=== PATIENT | male | born 1990 | race Caucasian/White ===

== ENCOUNTER 2017-10-16 23:35 | Emergency (ER) | payer SELFPAY ==
[~2017-10-16] VITALS: Ht 175.3 cm; Wt 103.4 kg
[2017-10-17] MEDS ORDERED: Bacitracin Oint UD TOPIC ONE ×2 (00:48→01:00)
[2017-10-17] MEDS ORDERED: CEPHALEXIN500 MG ORAL (00:49)
--- NOTE | 2017-10-17 00:49 | Emergency Room Report ---
History of Present Illness General Chief Complaint: Laceration Source: Patient Present Illness HPI Is a 27-year-old male with no cerumen past medical history. He presents with laceration to right leg. He was at a soccer game when his friend fell onto him and he fell. He sustained a laceration to his right leg. No other injury. Denies any other complaint. Tetanus up-to-date. Allergies: Coded Allergies: AMOXICILLIN (Verified Allergy, Unknown, 10/16/17) Patient History Past Medical History: see triage record, old chart reviewed Past Surgical History: other Pertinent Family History: none Social History: Reports: alcohol use Immunizations: UTD Reviewed Nursing Documentation: PMH: Agreed; PSxH: Agreed Nursing Documentation-PMH Past Medical History: No Stated History Review of Systems Eye: Denies: eye pain, blurred vision ENT: Denies: ear pain, nose congestion, throat swelling Respiratory: Denies: cough, shortness of breath Cardiovascular: Denies: chest pain, palpitations Gastrointestinal: Denies: abdominal pain, diarrhea, nausea, vomiting Musculoskeletal: Denies: back pain, joint pain Skin: Denies: rash Neurological: Denies: headache, numbness Endocrine: Denies: increased thirst, increased urine Hematologic/Lymphatic: Denies: easy bruising All Other Systems: negative except mentioned in HPI Physical Exam Vital Signs Date Time Temp Pulse Resp B/P (MAP) Pulse Ox O2 Delivery O2 Flow Rate FiO2 10/16/17 23:44 97.6 105 18 113/61 95 Room Air 97.5 vitals normal Sp02 EP Interpretation: reviewed, normal General Appearance: well appearing, no apparent distress, alert Head: normocephalic, atraumatic Eyes: bilateral eye PERRL, bilateral eye EOMI ENT: hearing grossly normal, normal pharynx Neck: full range of motion, supple, no meningismus Respiratory: chest non-tender, lungs clear, normal breath sounds Cardiovascular #1: regular rate, rhythm, no murmur Gastrointestinal: normal bowel sounds, non tender, no mass, no organomegaly, no bruit, non-distended Musculoskeletal: back normal, gait/station normal, normal range of motion, other - 5 cm laceration to the proximal right tibia area. No foreign body Psychiatric: mood/affect normal Skin: warm/dry Procedures Laceration/Wound Repair Laceration/Wound Repair : Consent: Verbal Wound Location: lower extremity Wound's Depth, Shape: linear, contused tissue Wound Length (cm): 5 Wound Explored: clean Irrigated w/ Saline (ccs): 1000 Betadine Prep?: Yes Anesthesia: 1% Lidocaine Volume Anesthetic (ccs): 5 Wound Repaired With: sutures Suture Size/Type: 3:0, proline Number of Sutures: 5 Sterile Dressing Applied?: Yes Patient Tolerated: Well Complications: None Medical Decision Making Diagnostic Impression: Primary Impression: Laceration of lower extremity Qualified Codes: S81.811A - Laceration without foreign body, right lower leg, initial encounter ER Course Patient with uncomplicated laceration to the lower extremity. Low risk for infection. No tendon laceration or foreign body. Last Vital Signs Date Time Temp Pulse Resp B/P (MAP) Pulse Ox O2 Delivery O2 Flow Rate FiO2 10/16/17 23:44 97.6 105 18 113/61 95 Room Air 97.5 Status: improved Disposition: HOME, SELF-CARE Condition: Stable Scripts Cephalexin* (KEFLEX*) 500 Mg Capsule 500 MG ORAL TID, #21 CAP Prov: LELO SANDERS M.D. 10/17/17 Patient Instructions: Laceration Care, Adult Additional Instructions: Keep wound clean. Follow-up your doctor in 7-10 days for suture removal. Return for evidence of infection. LELO SANDERS M.D. Oct 17, 2017 00:49
[2017-10-17 01:09] VITALS: BP 120/68
[2017-10-17 01:10] VITALS: BP 120/68
== END 2017-10-17 01:13 | disposition home or self-care (01) ==
LOC: EMR 10-17 00:30
DX: S81.811A Laceration without foreign body, right lower leg, initial encounter (principal); W03.XXXA Other fall on same level due to collision with another person, initial encounter; Y93.66 Activity, soccer; Y92.322 Soccer field as the place of occurrence of the external cause; Z88.1 Allergy status to other antibiotic agents
CPT/HCPCS: 99283